=== PATIENT | female | born 1975 ===

== ENCOUNTER 2018-01-01 09:15 | Outpatient (CLI) | payer MEDICARE ==
--- NOTE | 2018-01-01 09:39 | XRay Report ---
LUMBAR SPINE RADIOGRAPHS: INDICATION: Left low back pain. COMPARISON: None similar at this institution. FINDINGS: AP and lateral lumbar spine radiographs demonstrate preserved vertebral body stature and disc heights. Slight lower lumbar rotoscoliosis. Possibly transitional/partially lumbarized S1. Nonobstructive bowel gas pattern. Normal bilateral SI joints. CONCLUSION: No acute lumbar radiographic abnormality, as described. Thank you for the opportunity to participate in this patient's care.
== END 2018-01-01 09:16 | disposition home or self-care (01) ==
LOC: SPVIMAG 09:15
PROVIDERS: ATTEND Physical Medicine & Rehabilitation
DX: M41.86 Other forms of scoliosis, lumbar region (principal)
CPT/HCPCS: 72100